=== PATIENT | male | born 1960 | race Caucasian/White ===

== ENCOUNTER 2017-08-01 06:14 | Day surgery (SDC) | payer OTHER ==
[~2017-08-01] VITALS: Ht 182.9 cm; Wt 88.2 kg
[~2017-08-01 06:14] MED LIST: ALBU8.5H8 IH; AMLO10TA55 PO; ARIP30TA PO; ASPI81TA39 PO; BENZ1TAB10 PO; DOCU250C91 PO; FERR-89 PO; FISH1CAP49 PO; GABA-531 PO; GENTOO OU; HALO5 PO; INSLAN SQ; INSU100C6 SQ; LACHLOT TD; LORA10TA7 PO; LOSA50TA37 PO; LURA40 PO; MOME13HF IH; PANT40TA25 PO; SIMV20TA6 PO; SODIUM CHLORIDE 0.9% 1,000 ML IV ONE; [UNRECOGNIZED DRUG - CODE] MC
[2017-08-01] MEDS ORDERED: LIDOCAINE HCL 2% 30 ML JELLY TP ONE (06:15)
[2017-08-01] MEDS ORDERED: BENZOCAINE 20% 50 MCG/SPRAY 57 GM TP ONE (06:15)
[2017-08-01] MEDS ORDERED: ALBUTEROL SULFATE 2.5 MG/0.5 ML NEB SOLUTION NEB ONE (06:15)
[2017-08-01] MEDS ORDERED: LIDOCAINE HCL 4% 50 ML SOLUTION TP ONE (06:15)
[2017-08-01] MEDS ORDERED: SODIUM CHLORIDE 0.9% 1,000 ML IV ONE (06:23)
[2017-08-01 07:18] LABS: GLUCOMETER DEV NAME(LOC) SDS 5; GLUCOSE,POINT OF CARE 143 MG/DL (70-110)
[2017-08-01] MEDS ORDERED: MIDAZOLAM HCL 2 MG/2 ML VIAL ONE (07:52)
[2017-08-01] MEDS ORDERED: FentaNYL CITRATE-PF 100 MCG/2 ML VIAL ONE (07:52)
[2017-08-01] MEDS ORDERED: MethylPREDNISolone SOD SUCC 125 MG/2 ML VIAL IVP ONE (08:30)
[2017-08-01] MEDS ORDERED: MethylPREDNISolone SOD SUCC 125 MG/2 ML VIAL ONE (08:52)
[2017-08-01] MEDS ORDERED: OXYGEN THERAPY IH SCH (20:00)
== END 2017-08-01 10:25 | disposition home or self-care (01) ==
LOC: SURGERY 06:14
PROVIDERS: ATTEND Internal Medicine Critical Care Medicine
DX: J38.4 Edema of larynx (principal); B37.0 Candidal stomatitis; F10.21 Alcohol dependence, in remission; E11.9 Type 2 diabetes mellitus without complications; M19.042 Primary osteoarthritis, left hand; M19.041 Primary osteoarthritis, right hand; F15.21 Other stimulant dependence, in remission; F12.21 Cannabis dependence, in remission; Z79.82 Long term (current) use of aspirin; Z79.4 Long term (current) use of insulin; Z79.899 Other long term (current) drug therapy; Z87.891 Personal history of nicotine dependence; Z98.890 Other specified postprocedural states
CPT/HCPCS: 31623; 31624; 71045; 82962; 87015; 87070; 87147; 87205; 87220; 88108; 88312; J2250; J2930; J3010; J7030